=== PATIENT | male | born 1955 | race Caucasian/White ===

== ENCOUNTER 2018-11-27 08:09 | Inpatient (IN) ==
--- NOTE | 2018-11-14 10:52 | Anesthesiology Consultation ---
Date of Service November 14, 2018 Assessment & Plan (1) Encounter for pre-operative examination: - No previous anesthesia/intubation records. Chart Review Chart Review: Acceptable Risk for Surgery and Patient seen in Pre Admission Testing Consults Requested none Teaching & Discussion Pre-Anesthesia Teaching/Discussion Notes: Instructed NPO after midnight before surgery, except medications with 15 cc of water. Medication instructions provided according to the PAT guidelines. History Surgery Operation Date: 11/27/18 10:20 Proposed Procedures p L4-L5 Posterior Lumbar Interbody Fusion - Alan Foreman DO Height/Weight Height: 6 ft 1 in Weight: 122.9 kg Allergies Allergy/AdvReac Type Severity Reaction Status Date / Time Iodinated Contrast- Oral and AdvReac Unknown N/V Verified 11/09/18 14:41 IV Dye seafood Allergy Unknown "SPOTS ON Uncoded 11/09/18 14:41 ME" Medications Home Medications Medication Instructions Recorded Confirmed Last Taken aspirin [Aspir-81] 81 mg PO QAM 11/09/18 11/09/18 11/09/18 cholecalciferol (vitamin D3) 1,000 unit PO DAILY 11/09/18 11/09/18 Unknown [Vitamin D3] diltiazem HCl 120 mg PO QAM 11/09/18 11/09/18 11/09/18 fluoxetine 20 mg PO BID 11/09/18 11/09/18 11/09/18 gabapentin 100 mg PO TID 11/09/18 11/09/18 11/09/18 ibuprofen [Advil] 400 mg PO UD PRN 11/09/18 11/09/18 Unknown naproxen sodium [Aleve] 440 mg PO UD PRN 11/09/18 11/09/18 Unknown pantoprazole 40 mg PO QAM 11/09/18 11/09/18 11/09/18 Past Medical History Medical History Anxiety and depression Back problem "SLIPPED DISC" -REASON FOR UPCOMING SURGERY Borderline high cholesterol High blood pressure History of kidney stones Exercise / Class Metabolic Activity II 4-5 Yardwork/Stairs/Walk up hill (Able to climb FOS. Goes for walks. Denies CP or SOB. ) Past Surgical History Surgical History History of colonoscopy History of left knee surgery BONE SPURS OUT History of surgery SCAR TISSUE REMOVED FROM THROAT History of tonsillectomy History of urologic surgery INCISION TO TAKE OUT KIDNEY STONE Nausea and vomiting after administration of anesthetic agent WHEN SCAR TISSUE REMOVED FROM THROAT, 15-20 YRS AGO NO OTHER PONV Past Anesthesia History No Hx of Anesthesia Complications and No Family Hx of Anesthesia Complications History of PONV No Hx of Motion Sickness and History of PONV (After one throat surgery to remove scar tissure) Social History Smoking Status: Current every day smoker tobacco type: cigarettes Smoking cigarettes per day: 3 CIGS/DAY - ADVISED NPO. Smoking off and on x 50 years (quit for 20 years) Do You Dip or Chew Tobacco: No Hx Alcohol Use: Yes Alcohol type: beer alcohol intake frequency: a few times a week substance use type: does not use Review of Systems Patient denies chest pain, shortness of breath, dyspnea on exertion, cough, wheezing, palpitations. +Joint Pain (Back, Knee, Ankle) +Acid Reflux (Controlled with medications) Physical Exam Vital Signs BP: 156/50 P: 66 R: 20 T: 98.3 SPO2: 97% on RA Constitutional + obese ENMT Mouth: + dentures (Full upper plate) and + edentulous Thyromental Distance: > or= 3.5 Finger Breadths (3.5) Mallampati Class: II Neck normal visual inspection and trachea midline; neck extension not limited Respiratory normal respiratory effort Auscultation: lungs clear to auscultation bilaterally Cardiovascular Rate/Rhythm: regular rate and regular rhythm Heart Sounds: no murmur Vessels: no carotid bruit Neurologic moves all extremities Psychiatric Orientation: alert and oriented x 3 Testing Laboratory Results 11/14/18 11:24 11/14/18 11:24 PT 10.3 Seconds (9.0-12.0) 11/14/18 11:24 INR 1.0 (0.9-1.1) 11/14/18 11:24 APTT 25.9 Seconds (21.0-31.0) 11/14/18 11:24 Blood Type O Positive 11/14/18 11:24 Antibody Screen NEGATIVE 11/14/18 11:24 Electrocardiogram Date: 11/14/18 Findings: + NSR @ (65) Chest X-Ray Date: 11/14/18 Findings: + NAD FINDINGS: The cardiac and mediastinal contours are normal. There is no evidence of focal pulmonary consolidation. There is no evidence of failure. No pleural effusions are visualized. IMPRESSION: No active disease in the chest.
--- NOTE | 2018-11-14 10:55 | PAT Medication Instructions ---
Medication Instructions Date of Service November 14, 2018 Home Medications aspirin [Aspir-81] 81 mg PO QAM cholecalciferol (vitamin D3) [Vitamin D3] 1,000 unit PO DAILY diltiazem HCl 120 mg PO QAM fluoxetine 20 mg PO BID gabapentin 100 mg PO TID ibuprofen [Advil] 400 mg PO NEEDED naproxen sodium [Aleve] 440 mg PO NEEDED pantoprazole 40 mg PO QAM ASK your surgeon for instructions aspirin [Aspir-81] 81 mg PO QAM - STOP on November 20 ibuprofen [Advil] 400 mg PO NEEDED naproxen sodium [Aleve] 440 mg PO NEEDED DO NOT take the morning of surgery cholecalciferol (vitamin D3) [Vitamin D3] 1,000 unit PO DAILY Take morning of surgery With a small sip of water, OTHERWISE NOTHING TO EAT OR DRINK AFTER MIDNIGHT: diltiazem HCl 120 mg PO QAM fluoxetine 20 mg PO BID gabapentin 100 mg PO TID pantoprazole 40 mg PO QAM Take evening before surgery fluoxetine 20 mg PO BID gabapentin 100 mg PO TID Other Notes If you have any questions please call us at [phone] or [phone] or [phone] or [phone]
--- NOTE | 2018-11-14 12:00 | XRay Report ---
XR chest Pre-admission PA/Lat CLINICAL HISTORY: Preoperative chest COMPARISON STUDY: No previous studies for comparison. FINDINGS: The cardiac and mediastinal contours are normal. There is no evidence of focal pulmonary co nsolidation. There is no evidence of failure. No pleural effusions are visualized.[ IMPRESSION: No active disease in the chest. Electronically signed by: Jose Cox M.D. 11/14/2018 11:59 AM
[2018-11-14 12:44] LABS: Basophils # (auto) 0.02 K/uL (0-0.2); Basophils % (auto) 0.3 %; Eosinophils # (auto) 0.22 K/uL (0-0.5); Eosinophils % (auto) 3.3 %; Hematocrit (blood only) 43.7 % (42-52); Hemoglobin 14.9 g/dL (14.0-18.0); Immature Granulocytes # (auto) 0.02 K/uL (0.00-0.02); Immature Granulocytes % (auto) 0.3 %; Mean Corpuscular Hgb Conc 34.1 g/dL (32-36); Mean Corpuscular Volume 92.8 fL (80-100); Mean Platelet Volume 10.4 fL (7.4-10.4); Monocytes # (auto) 0.86 K/uL (0.11-0.59); Monocytes % (auto) 12.9 %; Neutrophils # (auto) 3.15 K/uL (1.4-6.5); Neutrophils % (auto) 47.2 %; Platelet Count 220 K/uL (130-400); RDW Standard Deviation 44.1 fL (36.4-46.3); Red Blood Count 4.71 M/uL (4.7-6.1); White Blood Count 6.67 K/uL (4.8-10.8)
[2018-11-14 12:51] LABS: BUN Creatinine Ratio 11.8 (10-20); Calcium 9.5 mg/dl (8.5-10.1); Creatinine Clr Calc Pharmacy 108.4 ml/min; Est GFR (African American) 96.6; Est GFR (Non-African American) 83.3
[2018-11-14 12:57] LABS: Partial Thromboplastin Time 25.9 Seconds (21.0-31.0); Prothrombin Time 10.3 Seconds (9.0-12.0)
--- NOTE | 2018-11-24 15:00 | History and Physical Report ---
DATE OF ADMISSION: 11/27/2018 CHIEF COMPLAINT: Back and lower extremity difficulty, paresthesias and a working diagnosis of a spondylolisthesis of spine L4-L5. HISTORY OF PRESENT ILLNESS: Jose De Jesus is miserable, poorly functional, 63 years of age. He is for elective surgery. He has failed conservative measures. PAST MEDICAL HISTORY: Positive for anxiety, depression, hypertension, obesity, usual childhood diseases. PAST SURGICAL HISTORY: Knee arthroscopy. ALLERGIES: Negative. FAMILY HISTORY: Negative. SOCIAL HISTORY: He is , moderate alcohol, no tobacco. Active lifestyle. REVIEW OF SYSTEMS: Positive for weight gain. Denies any fevers, sweats, chills. Denies chest pain, palpitations. Denies asthma, wheezing, shortness of breath. Denies nausea, vomiting, urgency, frequency. He has sleep problems and depression, joint pain, stiffness and muscle pain. MEDICATIONS: Include aspirin, gabapentin, Flexeril, diltiazem. Duration of symptoms 3 years. OBJECTIVE: GENERAL: He is 6 feet 1 inch. He is 250. He is alert, oriented. Mentation normal. HEENT: Essentially normal. VITAL SIGNS: Blood pressure 140/80, pulse 80, respirations 16. CARDIAC: Normal S1, S2, no S3. LUNGS: Clear to auscultation. No rales, rhonchi, wheezing. ABDOMEN: Soft and nontender. NECK: No adenopathy or vascular changes. No skin ailments. MUSCULOSKELETAL: He has pain with straight leg raising bilaterally. He walks with a limp. He has intact vascular structures. He has slight numbness and tingling. He has a grade 2 spondylolisthesis of the spine. IMPRESSION: Severe spinal stenosis and grade 2 spondylolisthesis. PLAN: Includes a PLIF procedure, L4-L5.
[~2018-11-27 08:09] MED LIST: CEFAZOLIN 2000MG 2,000 MG/15 ML SYR IV SCH; LR 15ML/HR IV SCH; SODIUM CHLORIDE 0.9% 1,000 ML IV SCH; cefUROXime 1,500 MG in DEXTROSE 5% 100 ML IV SCH
[2018-11-27] MEDS ORDERED: ONDANSETRON INJ 2 MG/ML 2 ML VIAL IV PRN ×2 (08:28→14:12)
[2018-11-27] MEDS ORDERED: fentaNYL citrate 100 MCG/2 ML VIAL IV PRN (08:28)
[2018-11-27] MEDS ORDERED: ePHEDrine sulfate 50 MG/ML AMP IV PRN (08:28)
[2018-11-27] MEDS ORDERED: HYDROmorphone INJ 1 MG/ML SYRINGE IV PRN (08:28)
[2018-11-27] MEDS ORDERED: PHENYLEPHRINE 100MCG/ML 5ML SYR IV PRN (08:28)
[2018-11-27] MEDS ORDERED: ATROPINE SULFATE 0.1 MG/ML 10ML SYR IV PRN (08:28)
[2018-11-27] MEDS ORDERED: PROMETHAZINE HCL 12.5 MG in SODIUM CHLORIDE 0.9% 50 ML IV PRN ×2 (08:28→14:12)
[2018-11-27] MEDS ORDERED: HYDROmorphone INJ 2 MG/ML SYR/VIAL IV PRN (08:45)
[2018-11-27] MEDS ORDERED: MIDAZOLAM HCL 1 MG/ML 2ML VIAL ONE (09:30)
[2018-11-27] MEDS ORDERED: fentaNYL citrate 100 MCG/2 ML VIAL ONE ×3 (09:30→12:20)
[2018-11-27] MEDS ORDERED: BACITRACIN INJ 50,000 UNIT VIAL ONE (09:48)
[2018-11-27] MEDS ORDERED: BUPIVACAINE/EPINEPHRINE 0.5% MPF 1:200,000 30 ML VIAL ONE ×2 (09:48→12:51)
[2018-11-27] MEDS ORDERED: THROMBIN FOR SOLN 20000 UNIT KIT ONE (09:48)
[2018-11-27] MEDS ORDERED: GELATIN SPONGE SZ 100 ONE (09:48)
[2018-11-27] MEDS ORDERED: VANCOMYCIN HCL 1000MG/20ML VIAL ONE ×2 (09:49→10:00)
--- NOTE | 2018-11-27 10:04 | History & Physical Bridge Note ---
Date of Service November 27, 2018 History & Physical Bridge Note I have examined the patient, reviewed the History & Physical and in the interval since the performance of the History & Physical I have noted the following changes of clinical significance: no changes noted
[2018-11-27] MEDS ORDERED: ROCURONIUM BROMIDE 10 MG/ML 5 ML VIAL ONE (10:44)
[2018-11-27] MEDS ORDERED: LIDOCAINE HCL 2% 2 ML VIAL/AMP(20MG/ML) INFIL ONE (10:44)
[2018-11-27] MEDS ORDERED: DEXAMETHASONE SOD INJ 4 MG/ML VIAL ONE (10:44)
[2018-11-27] MEDS ORDERED: PROPOFOL IV EMULSION 10 MG/ML 20 ML VIAL IV ONE (10:44)
[2018-11-27] MEDS ORDERED: ONDANSETRON INJ 2 MG/ML 2 ML VIAL ONE (10:44)
[2018-11-27] MEDS ORDERED: NEOSTIGMINE METHYLSULFATE 5 MG/5 ML SYR ONE (11:37)
[2018-11-27] MEDS ORDERED: GLYCOPYRROLATE 0.2 MG/ML VIAL ONE (11:37)
--- NOTE | 2018-11-27 13:09 | Post Operative Brief Note ---
Immediate Post Op Note v1 Date of Surgery November 27, 2018 Pre & Post Diagnosis Operation Date: 11/27/18 10:20 Pre-Op Diagnosis: LUMBAR SPINAL STENOSIS Post-Op Diagnosis: LUMBAR SPINAL STENOSIS Procedure Operation Date: 11/27/18 10:20 Actual Procedures p L4-L5 Posterior Lumbar Interbody Fusion - Alan Foreman DO Surgeon Alan Foreman DO Evaluation Assistant evangelina Estimated Blood Loss 500 Findings Consistent with Post-Op Diagnosis Drains Sepulveda Catheter and Hemovac Drain Complications none Disposition Accompanied Patient To Recovery: Yes Overlapping Procedure I was immediately available: during the entire case.
--- NOTE | 2018-11-27 13:16 | Fluoroscopy Report ---
FL spine 1V any level CLINICAL HISTORY: L4-L5 POSTERIOR LUMBAR INTERBODY FUSION COMPARISON STUDY: None. FLUOROSCOPY TIME: 23 seconds. FINDINGS: Single fluoroscopic spot image of the lower lumbar spine demonstrates posterior decompressi on fusion at L4-L5 with pedicle screws and rods. The hardware appears intact. IMPRESSION: Fluoroscopy provided for L4-L5 posterior decompression and fusion Electronically signed by: Davi Salazar M.D. 11/27/2018 1:15 PM
--- NOTE | 2018-11-27 13:40 | Anesthesiology Progress Note ---
Date of Service November 27, 2018 Anesthesia Post Procedure Vital Signs Vital Signs: Temp Pulse Pulse Resp BP Pulse Ox 11/27/18 13:35 36.6 C 71 16 128/71 95 11/27/18 13:25 76 16 117/81 95 11/27/18 13:15 73 16 129/77 97 11/27/18 13:08 36.4 C L 76 16 116/79 96 11/27/18 08:41 37.1 C 68 20 143/85 H 98 Transfer of Care Handoff Completed per policy Notes Mental Status: alert / awake / arousable Patient Amnestic to Procedure: Yes Nausea / Vomiting: adequately controlled Pain: adequately controlled Airway Patency, RR, SpO2: stable & adequate BP & HR: stable & adequate Hydration State: stable & adequate Anesthetic Complications: no major complications apparent
[2018-11-27] MEDS ORDERED: MAGNESIUM HYDROXIDE SUSP 30 ML UDC PO PRN (14:12)
[2018-11-27] MEDS ORDERED: BISACODYL 10 MG SUPP PR PRN (14:12)
[2018-11-27] MEDS: SODIUM CHLORIDE 0.9% 1000ML 1,000 ML IV SCH (14:42)
[2018-11-27] MEDS: GABAPENTIN 100 MG CAP PO SCH ×2 (15:00→20:33)
[2018-11-27] MEDS: HYDROmorphone INJ 0.5 MG/0.5 ML SYR IV PRN (15:28)
[2018-11-27] MEDS: CEFAZOLIN 2000MG 2,000 MG/15 ML SYR IV SCH (17:07)
[2018-11-27] MEDS: OXYCODONE HCL IR 5 MG TAB (IMMEDIATE RELEASE) PO PRN (18:45)
[2018-11-27] MEDS: DOCUSATE SODIUM/SENNA 50/8.6MG TAB PO SCH (20:33)
[2018-11-27] MEDS: FLUOXETINE HCL 20 MG CAP PO SCH (20:33)
[2018-11-28] MEDS: OXYCODONE HCL IR 5 MG TAB (IMMEDIATE RELEASE) PO PRN ×5 (00:14→20:58)
[2018-11-28] MEDS: CEFAZOLIN 2000MG 2,000 MG/15 ML SYR IV SCH (02:41)
[2018-11-28] MEDS: ACETAMINOPHEN 1,000 MG/100 ML VIAL IV PRN (02:45)
[2018-11-28] MEDS: SODIUM CHLORIDE 0.9% 1000ML 1,000 ML IV SCH (04:31)
--- NOTE | 2018-11-28 07:48 | Anesthesiology Progress Note ---
Date of Service November 28, 2018 Anesthesia Post Procedure Vital Signs Vital Signs: Temp Pulse Pulse Pulse Resp BP Pulse Ox 11/28/18 07:09 36.9 C 74 16 114/75 94 11/28/18 03:24 37.0 C 70 16 110/64 96 11/28/18 00:09 37.1 C 83 16 112/68 96 11/27/18 20:31 88 11/27/18 19:22 37.2 C 114 H 19 128/69 94 11/27/18 17:23 36.8 C 90 18 127/79 95 11/27/18 16:09 88 11/27/18 16:01 37.4 C 117 H 18 125/79 95 11/27/18 15:09 37.4 C 84 18 101/65 96 11/27/18 14:24 78 16 146/80 H 93 11/27/18 14:15 36.9 C 75 16 148/77 H 92 11/27/18 13:45 71 16 140/78 95 11/27/18 13:35 36.6 C 71 16 128/71 95 11/27/18 13:25 76 16 117/81 95 11/27/18 13:15 73 16 129/77 97 11/27/18 13:08 36.4 C L 76 16 116/79 96 11/27/18 08:41 37.1 C 68 20 143/85 H 98 Pain Intensity Lower Back: Pain Intensity: 2 Notes Mental Status: alert / awake / arousable and participated in evaluation Patient Amnestic to Procedure: Yes Nausea / Vomiting: adequately controlled Pain: adequately controlled Airway Patency, RR, SpO2: stable & adequate BP & HR: stable & adequate Hydration State: stable & adequate Anesthetic Complications: no major complications apparent and Pt Satisfied with anesthetic care
--- NOTE | 2018-11-28 07:56 | Operative Report ---
DATE OF OPERATION: 11/27/2018 PREOPERATIVE DIAGNOSIS: Grade 2 spondylolisthesis, lumbar spine. POSTOPERATIVE DIAGNOSIS: Grade 2 spondylolisthesis, lumbar spine. PROCEDURE: Included a posterior lumbar interbody fusion, L4-L5, lumbar spine. SURGEON: Alan Foreman DO LEGAL PRACTICE MANAGER: Aj Harley PA-C. COMPLICATIONS: Zero. BLOOD LOSS: 500. ANESTHETIC: General. IMPLANTS USED: By the [employer]. DESCRIPTION OF PROCEDURE: The patient was seen and identified and marked in the holding area, brought back to the operating room. A general intubated anesthetic provided. Sepulveda catheter administered. He was placed prone on the [place] table, scrubbed, prepped, and draped sterile. I made a skin incision, fascial incision. He is a very obese individual, very deep wound. We were 4 inches deep just to the top of the facet joints. We first came down roughly at the 3rd vertebrae, I wanted to be at the 4th vertebrae. We then extended the incision an inch and half or so more distally. We continued with our dissection. We came right down the 4-5 interspace. It was a very difficult dissection, significant musculature, significant osteophyte, facet joint hypertrophy, lamina hypertrophy. It was really a difficult dissection as stated. We then carefully and meticulously dissected the neural canal. I was able to get nice decompression of the 4 nerve root neural foramen and the 5 nerve root was well. I was pleased with this aspect. We then safely got pedicle screws in using a large size pedicle screw system from the [employer], they are dual diameter. I safely got pedicle screws into the 4th and 5th vertebrae bilaterally, the position was anatomic. I initially put a cage on the left hand side at L4-L5. We did a discectomy. We cleaned out the intervertebral disc fairly readily. I used some sameer, I shaved up to 11. I was too aggressive with the shaver, I believe on the left hand side my cage migrated into the vertebral body of 5. There did not appear to be neural compression or compromise. I went on the right hand side and then the interbody cage as well, did a formal discectomy, foraminotomy, took out disc material. I packed this as well, selected a cage from the [employer] 26 mm in length, 11 mm in height, and 10 mm wide. This was a near anatomic placement and reduction of the spondylolisthesis. We locked down the construct under compression. We irrigated it thoroughly. We then bone grafted out of the transverse processes with combination of DBM which was demineralized bone matrix along with the patient's own autograft morcellized. We locked down the construct after this, irrigated thoroughly, placed some Gelfoam over the dural structures, put some vancomycin deep, a Hemovac drain deep as well. Closed fascia to fascia in watertight fashion with #1 Vicryl suture, 2-0 in subcuticular layer, staple gun on the skin. Sterile dressings applied and the patient returned to PACU in improved, stable condition. Implants used, again [employer]. Complications, zero. Bone graft used was a combination of autograft and a demineralized bone matrix. Sponge and needle count correct at the close of the procedure. I attest to the content of the Intraoperative Record and any orders documented therein. Any exception s are noted below.
[2018-11-28] MEDS: ASPIRIN 81 MG ECTAB PO SCH (08:33)
[2018-11-28] MEDS: PANTOprazole 40 MG TAB PO SCH (08:34)
[2018-11-28] MEDS: GABAPENTIN 100 MG CAP PO SCH ×3 (08:34→20:57)
[2018-11-28] MEDS: FLUOXETINE HCL 20 MG CAP PO SCH ×2 (08:34→20:57)
[2018-11-28] MEDS: HYDROmorphone INJ 0.5 MG/0.5 ML SYR IV PRN (18:28)
[2018-11-28] MEDS: DOCUSATE SODIUM/SENNA 50/8.6MG TAB PO SCH (20:58)
[2018-11-29] MEDS: OXYCODONE HCL IR 5 MG TAB (IMMEDIATE RELEASE) PO PRN ×4 (01:47→13:09)
[2018-11-29] MEDS: FLUOXETINE HCL 20 MG CAP PO SCH (08:18)
[2018-11-29] MEDS: GABAPENTIN 100 MG CAP PO SCH ×2 (08:18→13:03)
[2018-11-29] MEDS: PANTOprazole 40 MG TAB PO SCH (08:19)
[2018-11-29] MEDS: ASPIRIN 81 MG ECTAB PO SCH (08:19)
[2018-11-29] MEDS: HYDROmorphone INJ 0.5 MG/0.5 ML SYR IV PRN (08:44)
--- NOTE | 2018-11-29 09:07 | Discharge Summary ---
He is alert, oriented, minimal complaints of pain. He has no pain at rest. His extremities are satisfactory. No paralysis, weakness. No shortness of breath, chest pain. He does have significant pain, but I think he is stable for discharge. He has had a rather uneventful course here in the hospital. He will be discharged home today, the 29 of November, improved stable condition. Prescriptions on his chart for oxycodone and Toradol. Instructions and precautions given from the office and here in the hospital. He is basically home resting and recovering for about 10 days.
[2018-11-29] MEDS: ACETAMINOPHEN 1,000 MG/100 ML VIAL IV PRN (13:01)
== END 2018-11-29 13:55 | disposition home or self-care (01) | DRG 455 ==
LOC: EDSEX → ASU 08:09 → 3E 13:18